=== PATIENT | female | born 1935 | race Caucasian/White ===

== ENCOUNTER → 2016-06-29 | Outpatient (CLI) | payer MEDICARE, OTHER ==
[~2016-06-29] MED LIST: ASPIRIN81 M1 PO; ASPIRIN81 MG PO; BACTRIM 400-801 TA1; CALCIUM + D 6001 TA1 PO; CALCIUM 600 +1 EAC3 PO; COZAAR PO; COZAAR100 MG; CRESTOR PO; CRESTOR5 MG PO; FISH OIL 1,2001 CAP PO; FISH OIL 1,21 CAP.EC PO; FOLIC ACID PO; FOLIC ACID1 MG PO; LOSARTAN-HCTZ1 EAC1 PO; LOSARTAN-HCTZ1 EAC2 PO; MULTI-VITAMIN1 EAC1 PO; MULTIVITAMIN1 UDCAP PO; VITAMIN E1000 UNI1 PO; VITAMIN E400 UNI1 PO; ZOCOR10 MG PO
== END | disposition home or self-care (01) ==
LOC: CSSDAY 13:43
DX: M81.0 Age-related osteoporosis without current pathological fracture (principal); Z79.899 Other long term (current) drug therapy
CPT/HCPCS: 36415; 82310; 96372; J0897

== ENCOUNTER → 2016-08-25 | Outpatient (CLI) | payer MEDICARE, OTHER ==
--- NOTE | ~2016-08-25 | CT17 ---
[facility] A Service of [facility] RADIOLOGY TEXT RESULTS PATIENT: RAMONITA MEZA LOCATION: [facility] : 36 UNIT #: [id number] AGE: [address]: Gerry Barrett MD SEX: F ORDER DR: [id number] [facility] [address] [place], [place] [address] [id number] O MR#: [id number] Acc #: [id number] NAME: RAMONITA MEZA. : 1935 SEX: F STUDY DATE/TIME: 08/25/2016 9:47 UNIT: [facility] ROOM: STUDY DESCRIPTION: CT Angio Head Attending Physician: Gerry Barrett M.D. Referring Physician: Gerry Barrett M.D. Ordering Physician: Gerry Barrett M.D. Primary Care Physician: Gerry Barrett M.D. MEDICAL IMAGING REPORT This report is preliminary unless electronic signature is present EXAM CT angiogram of the head and neck with contrast 08/25/2016 COMPARISON None. HISTORY Double vision 2 weeks, vertigo. Headaches. TECHNIQUE CT angiogram of the head and neck was obtained with IV contrast in the axial plane followed by reformats in 3 planes of the [employer] [place]. Tumbling 3-D MIP images and surface rendered images of the [employer] [place] were also obtained. Curved reformats of bilateral carotid and vertebral arteries were obtained in the neck. This CT exam was performed with one or more of the following radiation dose reduction techniques: automatic exposure control, adjustment of mA and/or kV according to patient size, and iterative reconstruction. FINDINGS NECK: Four-vessel aortic arch is seen with the left vertebral artery directly arising from the arch between the left common carotid artery and the left subclavian artery. Bilateral common, internal and external carotid arteries do not demonstrate any severe stenosis. Mild atherosclerotic plaque is noted in the distal left common carotid artery and in the right common carotid artery bifurcation extending to the right ICA bulb. Bilateral external carotid arteries are unremarkable. Right vertebral artery is dominant. Bilateral vertebral arteries demonstrate expected caliber and flow. No dissection, stenosis or aneurysm is seen. HEAD: Bilateral intracranial internal carotid arteries, anterior cerebral STS. [facility] A Service of [facility] RADIOLOGY TEXT RESULTS PATIENT: RAMONITA MEZA [facility] UNIT #: [id number] AGE: [address]: Gerry Barrett MD SEX: F ORDER DR: arteries and middle cerebral arteries do not demonstrate any significant abnormality. ACOM and bilateral PCOMs are seen. Basilar artery, bilateral posterior cerebral arteries are within normal limits. Right vertebral artery crosses over to the left and feeds the basilar artery. The left vertebral artery is hypoplastic and it significantly decreases in caliber after the takeoff of the left PICA and contributes minimally to the basilar arterial flow. There appears to be prominent basilar tip, likely related to a junctional complex with bilateral posterior cerebral arteries and bilateral superior cerebellar arteries arising from it. A wide-neck small outpouching in the right lateral aspect of the basilar tip cannot be excluded. The right [employer] and the right superior cerebellar artery arise from it. EXTRAVASCULAR SOFT TISSUES: Degenerative changes are in the cervical spine. S-shaped nasal septal deviation is seen. Streak artifact from dental work limits evaluation. No enhancing intracranial mass, hydrocephalus or midline shift is discerned. Right apical irregular density is noted with some calcification suggestive of scarring. Based on statistics, it is incompletely evaluated. IMPRESSION 1. The basilar arterial tip is prominent. It appears to be slightly prominent in the right lateral aspect from which the right [employer] TECHNICIAN and the right superior cerebellar artery arise. It is probably junctional complex, however a tiny wide-neck aneurysm arising from the right lateral aspect cannot be excluded though its less likely. 2. 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 3. There is significant decrease in caliber of the left vertebral artery involving the distal half of the V4 segment, after takeoff of left PICA. It is probably due to the takeoff rather than due to superimposed stenosis. 4. No hemodynamically flow-limiting significant stenosis in bilateral internal carotid artery bulbs per NASCET criteria. Dictated by... Yajaira Negrete M.D. THIS IS AN ELECTRONICALLY VERIFIED REPORT Yajaira Negrete M.D. at 08/26/2016 11:02 AM CPR/pcl TD: 08/25/2016 21:09 JOB #: [id number] MEDICAL IMAGING REPORT [facility] A Service of [facility] RADIOLOGY TEXT RESULTS PATIENT: RAMONITA MEZA LOCATION: [facility] : 36 UNIT #: [id number] AGE: [address]: Gerry Barrett MD SEX: F ORDER DR: Page 1 of 1 COPY
--- NOTE | ~2016-08-25 | CT23 ---
[facility] A Service of [facility] RADIOLOGY TEXT RESULTS PATIENT: RAMONITA MEZA LOCATION: [facility] : 37 UNIT #: [id number] AGE: [address]: Gerry Barrett MD SEX: F ORDER DR: [id number] [facility] [address] [place], [place] [address] [id number] O MR#: [id number] Acc #: [id number] NAME: RAMONITA MEZA : 1935 SEX: F STUDY DATE/TIME: 08/25/2016 9:47 UNIT: [facility] ROOM: STUDY DESCRIPTION: CT Angio Neck Attending Physician: Gerry Barrett M.D. Referring Physician: Gerry Barrett M.D. Ordering Physician: Gerry Barrett M.D. Primary Care Physician: Gerry Brarett M.D. MEDICAL IMAGING REPORT This report is preliminary unless electronic signature is present EXAM CTA head and neck HISTORY Refer below. FINDINGS Please refer to the CTA head report on the same date for complete details. Dictated by... Yajaira Negrete M.D. THIS IS AN ELECTRONICALLY VERIFIED REPORT Yajaira Negrete M.D. at 08/28/2016 3:02 PM CPR/pcl TD: 08/25/2016 21:18 JOB #: [id number] MEDICAL IMAGING REPORT Page 1 of 1 COPY
== END | disposition home or self-care (01) ==
LOC: CCAT 08:21
DX: H53.2 Diplopia (principal); H81.13 Benign paroxysmal vertigo, bilateral; R51 Headache
CPT/HCPCS: 70496; 70498; Q9967

== ENCOUNTER → 2017-01-09 | Outpatient (CLI) | payer MEDICARE, OTHER ==
--- NOTE | ~2017-01-09 | CR63 ---
[facility] A Service of [facility] RADIOLOGY TEXT RESULTS PATIENT: RAMONITA MEZA LOCATION: [facility] : 36 UNIT #: [id number] AGE: [address]: GABY LEZAMA APRN SEX: F ORDER DR: [id number] [facility] [address] [place], [place] [address] [id number] O MR#: [id number] Acc #: [id number] NAME: RAMONITA MEZA. : 1935 SEX: F STUDY DATE/TIME: 01/09/2017 14:34 UNIT: [facility] ROOM: STUDY DESCRIPTION: CR Chest 2 View Attending Physician: Gaby Lezama Np Referring Physician: Gaby Lezama Np Ordering Physician: Gaby Lezama Np Primary Care Physician: Gerry Barrett M.D. MEDICAL IMAGING REPORT This report is preliminary unless electronic signature is present EXAMINATION PA and lateral chest. DATE 01/09/2017 at 14:34. HISTORY 81-year-old female with musculoskeletal chest pain, midsternal chest pain and shortness of breath; which began 2 weeks ago after a fall. History of bilateral mastectomy. COMPARISON None. FINDINGS Lungs are hyperinflated, but clear. There is upper thoracic dextroscoliosis. Heart size is within normal limits. No pleural effusion or pneumothorax is evident. Suspected bilateral breast reconstructions obscure visualization of the [id number] sternum on the lateral view. No definite sternal abnormalities identified. IMPRESSION 1. No acute chest findings. 2. Upper thoracic dextroscoliosis. 3. Pulmonary hyperinflation suggesting emphysematous change. Dictated by... Deana Colorado M.D. THIS IS AN ELECTRONICALLY VERIFIED REPORT Deana Colorado M.D. at 01/12/2017 8:34 AM [facility] A Service [facility] RADIOLOGY TEXT RESULTS PATIENT: RAMONITA MEZA LOCATION: [facility], INCT #: [id number] : 37 UNIT #: [id number] AGE: [address]: GABY LEZAMA APRN SEX: F ORDER DR: TD: 01/10/2017 07:26 JOB #: [id number] MEDICAL IMAGING REPORT Page 1 of 1 COPY
== END | disposition home or self-care (01) ==
LOC: CRAD 13:55
DX: R07.89 Other chest pain (principal); R91.8 Other nonspecific abnormal finding of lung field; M41.9 Scoliosis, unspecified
CPT/HCPCS: 71020